=== PATIENT | female | born 1990 | race Caucasian/White ===

== ENCOUNTER 2017-10-05 07:26 | Emergency (ER) | payer OTHER, BC ==
[~2017-10-05] VITALS: Ht 165.1 cm; Wt 54.4 kg
== END 2017-10-05 08:10 | disposition home or self-care (01) ==
LOC: ER 07:26
DX: S01.511A Laceration without foreign body of lip, initial encounter (principal); S13.9XXA Sprain of joints and ligaments of unspecified parts of neck, initial encounter; S00.10XA Contusion of unspecified eyelid and periocular area, initial encounter; S00.81XA Abrasion of other part of head, initial encounter; V48.5XXA Car driver injured in noncollision transport accident in traffic accident, initial encounter; W22.11XA Striking against or struck by driver side automobile airbag, initial encounter
CPT/HCPCS: 12011; 99283